=== PATIENT | male | born 1950 | race Caucasian/White ===

== ENCOUNTER 2021-04-23 03:22 | Inpatient (IN) | payer MEDICARE, MEDICAID ==
[~2021-04-23] VITALS: Ht 179.1 cm; Wt 124.2 kg
--- NOTE | 2021-04-23 03:35 | NUR ---
Pt arrived to ED with c/o numb lower extrimities that are also painful for the last two weeks. Pt is able to ambulate with steady gait, moves toes independently. Connected to BP and O2 monitors, states that he has been uncompliant with most medications except HCTZ and albuterol. Son at bedside. 86% on RA, 98% on 4L NC. at bedside for eval. TM
[2021-04-23] MEDS ORDERED: SODIUM CHLORIDE FLUSH 10ML SYR IVF ONE (04:00)
[2021-04-23] MEDS ORDERED: ALBUTEROL/IPRATROPIUM 2.5MG/0.5MG, 3 ML NPPB ONE (04:00)
[2021-04-23] MEDS ORDERED: methylPREDNISolone SOD SUCC 125 MG/2 ML IV ONE (04:00)
[2021-04-23] MEDS ORDERED: CEFAZOLIN PMX 1GM/50ML 50 ML IV ONE (04:00)
[2021-04-23] MEDS ORDERED: ALBUTEROL/IPRATROPIUM 2.5MG/0.5MG, 3 ML ONE (04:02)
[2021-04-23] MEDS ORDERED: methylPREDNISolone SOD SUCC 125 MG/2 ML ONE (04:02)
[2021-04-23] MEDS ORDERED: CEFAZOLIN PMX 1GM/50ML 50 ML ONE (04:03)
[2021-04-23 04:13] LABS: BASOPHILS % (AUTO) 1 % (0-1); EOSINOPHILS % (AUTO) 1 % (1-7); LYMPHOCYTES % (AUTO) 18 % (22-44); MEAN CORPUSCULAR HGB CONC 32.4 g/dL (33.2-36.2); MEAN PLATELET VOLUME 8.5 fL (7.4-10.4); MONOCYTES % (AUTO) 11 % (2-9); NEUTROPHILS % (AUTO) 70 % (42-75); PLATELET COUNT 91 x10^3/uL (130-400); RED BLOOD COUNT 5.85 x10^6/uL (4.38-5.82); RED CELL DISTRIBUTION WIDTH 14.5 % (9.4-14.8)
[2021-04-23 04:22] LABS: ALBUMIN 2.6 g/dL (3.4-5.0); ANION GAP 6 mmol/L (5-15); CALCIUM 7.8 mg/dL (8.5-10.1); CHLORIDE 100 mmol/L (98-107)
[2021-04-23 04:31] LABS: ALANINE AMINOTRANSFERASE 16 U/L (12-78); ALKALINE PHOSPHATASE 56 U/L (45-117); BILIRUBIN,TOTAL 1.5 mg/dL (0.2-1.0); CREATININE 1.12 mg/dL (0.7-1.3); T4 (THYROXINE) 9.5 mcg/dL (4.5-12.1); TOTAL PROTEIN 6.4 g/dL (6.4-8.2); TROPONIN I < 0.015 ng/mL (0.000-0.045)
[2021-04-23] MEDS ORDERED: FUROSEMIDE 40 MG/4 ML IV ONE (05:00)
[2021-04-23] MEDS ORDERED: LOSA1TAB25 PO (05:18)
[2021-04-23] MEDS ORDERED: ALBU0.63 NEB (05:19)
--- NOTE | 2021-04-23 05:53 | NUR ---
pt ambulatory with steady gait to restroom
--- NOTE | 2021-04-23 06:58 | NUR ---
Report to Cielo CEBALLOS
--- NOTE | 2021-04-23 07:03 | NUR ---
Pt report from [facility]. Pt care to be assumed.
--- NOTE | 2021-04-23 07:21 | NUR ---
Pt sitting on bedside, talking with son. Pt reports continuing numbness to legs x 3 weeks; denies back injury/problems. Right hand swollen; pt states it's from too much water in his blood. Denies CP, dyspnea, SOB. Cardiac monitoring in progress: NSR. O2 sat 99% 2LNC. Resp even & unlabored, speech clear, pt unwilling to deep breath for accurate LS assessment, skin WNL. Pt awaiting room assignment.
--- NOTE | 2021-04-23 07:39 | NUR ---
Dr Marquez at BS
--- NOTE | 2021-04-23 07:59 | NUR ---
Pt report to [facility] [place] for room 504.
[2021-04-23] MEDS ORDERED: ACETAMINOPHEN 325 MG TABLET PO PRN (08:00)
[2021-04-23] MEDS ORDERED: VANCOMYCIN PMX 1GM/200ML 200 ML IV ONE (08:00)
[2021-04-23] MEDS ORDERED: VANCOMYCIN PER PHARMACY MC PRN (08:00)
[2021-04-23] MEDS ORDERED: ONDANSETRON 2MG/ML, 2ML IVPush PRN (08:00)
[2021-04-23] MEDS ORDERED: ENALAPRILAT 1.25 MG/ML, 2ML IVPush PRN (08:00)
[2021-04-23] MEDS ORDERED: LABETALOL 5MG/ML, 20ML IVPush PRN (08:00)
[2021-04-23] MEDS ORDERED: GABAPENTIN 300 MG CAPSULE PO PRN (08:00)
[2021-04-23] MEDS ORDERED: POLYETHYLENE GLYCOL 17 GM PACKET PO PRN (08:00)
[2021-04-23] MEDS ORDERED: MAGNESIUM SULFATE PMX 2GM/50ML 50 ML IV ONE (08:30)
[2021-04-23 08:42] VITALS: BP 165/97
[2021-04-23] MEDS ORDERED: FUROSEMIDE 40 MG/4 ML ONE (09:20)
[2021-04-23] MEDS: ENOXAPARIN 40 MG/0.4 ML SQ SCH (09:26)
[2021-04-23] MEDS ORDERED: PHARMACOKINETIC CONSULTATION MC ONE (09:30)
[2021-04-23] MEDS ORDERED: VANCOMYCIN 2,500 MG in SODIUM CHLORIDE 0.9% 500 ML IV ONE (09:30)
[2021-04-23] MEDS ORDERED: PHARMACOKINETIC MONITORING MC PRN (09:30)
[2021-04-23] MEDS ORDERED: ALBUTEROL SULFATE 2.5 MG/3 ML NPPB PRN (09:30)
[2021-04-23 11:58] LABS: TROPONIN I < 0.015 ng/mL (0.000-0.045)
[2021-04-23] MEDS: AMPICILLIN/SULBACTAM 3 GM in SODIUM CHLORIDE 0.9% 100 ML IV SCH ×2 (12:45→19:33)
[2021-04-23 13:11] VITALS: BP 146/98
[2021-04-23 16:39] VITALS: BP 155/78
[2021-04-23] MEDS: POTASSIUM CHLORIDE 20 MEQ TAB.ER.PRT PO SCH (16:42)
[2021-04-23] MEDS: methylPREDNISolone SOD SUCC 40 MG/ML IVPush SCH ×2 (16:42→21:48)
[2021-04-23] MEDS: FUROSEMIDE 40 MG/4 ML IV SCH (16:42)
[2021-04-23 17:18] LABS: TROPONIN I < 0.015 ng/mL (0.000-0.045)
[2021-04-23 19:14] VITALS: BP 147/93
[2021-04-24] MEDS: AMPICILLIN/SULBACTAM 3 GM in SODIUM CHLORIDE 0.9% 100 ML IV SCH ×4 (01:09→20:16)
[2021-04-24 01:39] VITALS: BP 149/85
[2021-04-24] MEDS: VANCOMYCIN 2,000 MG in SODIUM CHLORIDE 0.9% 500 ML IV SCH (04:48)
[2021-04-24] MEDS: methylPREDNISolone SOD SUCC 40 MG/ML IVPush SCH ×4 (04:53→22:56)
[2021-04-24 04:56] LABS: ALANINE AMINOTRANSFERASE 21 U/L (12-78); ALBUMIN 2.7 g/dL (3.4-5.0); ANION GAP 4 mmol/L (5-15); CALCIUM 8.7 mg/dL (8.5-10.1); CHLORIDE 96 mmol/L (98-107); CHOLESTEROL, TOTAL 119 mg/dL (140-239); CREATININE 1.29 mg/dL (0.7-1.3)
[2021-04-24 05:00] LABS: ALKALINE PHOSPHATASE 62 U/L (45-117); CHOL/HDL RATIO 2.8; HDL CHOL % 35 % (26-37); HDL CHOLESTEROL (DIRECT) 42 mg/dL (40-60); LDL CHOLESTEROL,CALCULATED 62 mg/dL (54-169); LDL/HDL RATIO 1.5 (0.5-3.0); TOTAL PROTEIN 6.8 g/dL (6.4-8.2); TRIGLYCERIDES 76 mg/dL (50-200); VLDL CHOLESTEROL 15 mg/dL (0-25)
[2021-04-24 05:03] LABS: BASOPHILS % (AUTO) 0 % (0-1); EOSINOPHILS % (AUTO) 0 % (1-7); LYMPHOCYTES % (AUTO) 4 % (22-44); MEAN CORPUSCULAR HEMOGLOBIN 31.5 pg (27.5-34.5); MEAN CORPUSCULAR HGB CONC 32.7 g/dL (33.2-36.2); MEAN PLATELET VOLUME 8.9 fL (7.4-10.4); MONOCYTES % (AUTO) 3 % (2-9); NEUTROPHILS % (AUTO) 93 % (42-75); PLATELET COUNT 93 x10^3/uL (130-400); RED BLOOD COUNT 5.86 x10^6/uL (4.38-5.82); RED CELL DISTRIBUTION WIDTH 14.8 % (9.4-14.8)
[2021-04-24 06:52] VITALS: BP 142/84
[2021-04-24] MEDS: ENOXAPARIN 40 MG/0.4 ML SQ SCH (08:03)
[2021-04-24] MEDS: FUROSEMIDE 40 MG/4 ML IV SCH ×2 (08:03→17:15)
[2021-04-24] MEDS: POTASSIUM CHLORIDE 20 MEQ TAB.ER.PRT PO SCH ×2 (08:03→17:15)
[2021-04-24 13:26] VITALS: BP 157/76
[2021-04-24 20:29] VITALS: BP 137/98
[2021-04-25] VITALS (10 sets, daily range): BP systolic 112–163; BP diastolic 68–85
[2021-04-25] MEDS: AMPICILLIN/SULBACTAM 3 GM in SODIUM CHLORIDE 0.9% 100 ML IV SCH ×4 (01:35→21:21)
[2021-04-25 05:18] LABS: BASOPHILS % (AUTO) 0 % (0-1); EOSINOPHILS % (AUTO) 0 % (1-7); LYMPHOCYTES % (AUTO) 4 % (22-44); MEAN CORPUSCULAR HEMOGLOBIN 30.9 pg (27.5-34.5); MEAN CORPUSCULAR HGB CONC 31.4 g/dL (33.2-36.2); MONOCYTES % (AUTO) 3 % (2-9); NEUTROPHILS % (AUTO) 93 % (42-75); PLATELET COUNT 92 x10^3/uL (130-400); RED BLOOD COUNT 5.67 x10^6/uL (4.38-5.82); RED CELL DISTRIBUTION WIDTH 14.8 % (9.4-14.8)
[2021-04-25 05:32] LABS: ANION GAP 4 mmol/L (5-15); CALCIUM 8.9 mg/dL (8.5-10.1); CHLORIDE 93 mmol/L (98-107)
[2021-04-25 05:33] LABS: CREATININE 1.12 mg/dL (0.7-1.3)
[2021-04-25] MEDS: VANCOMYCIN 2,000 MG in SODIUM CHLORIDE 0.9% 500 ML IV SCH (05:41)
[2021-04-25] MEDS: methylPREDNISolone SOD SUCC 40 MG/ML IVPush SCH ×3 (05:47→21:21)
[2021-04-25] MEDS: ENOXAPARIN 40 MG/0.4 ML SQ SCH ×2 (09:19→21:21)
[2021-04-25] MEDS: FUROSEMIDE 40 MG/4 ML IV SCH ×2 (09:19→17:13)
[2021-04-25] MEDS ORDERED: LIDOCAINE 1%, 10ML ONE (09:36)
[2021-04-25 09:37] LABS: BILIRUBIN, DIRECT 0.2 mg/dL (0.1-0.2); BILIRUBIN,INDIRECT 0.6 mg/dL (0.0-2.0); BILIRUBIN,TOTAL 0.8 mg/dL (0.2-1.0); TOTAL PROTEIN 6.7 g/dL (6.4-8.2)
[2021-04-25] MEDS: CARVEDILOL 3.125 MG TABLET PO SCH (17:13)
--- NOTE | 2021-04-25 22:32 | NUR ---
MARY SHAH - Fall Risk Medication(s) present (CARVEDILOL, FUROSEMIDE, GABAPENTIN, LABETALOL) and receiving anticoagulants (ENOXAPARIN). Signed: 04/25/21 at 2233 by Carley CHATMAN
[2021-04-26] VITALS (7 sets, daily range): BP systolic 107–137; BP diastolic 59–88
[2021-04-26] MEDS: AMPICILLIN/SULBACTAM 3 GM in SODIUM CHLORIDE 0.9% 100 ML IV SCH ×4 (02:54→20:48)
[2021-04-26] MEDS: FUROSEMIDE 40 MG/4 ML IV SCH ×2 (06:42→17:34)
[2021-04-26] MEDS: CARVEDILOL 3.125 MG TABLET PO SCH ×2 (06:42→17:41)
[2021-04-26 08:35] LABS: ANION GAP 3 mmol/L (5-15); CALCIUM 8.8 mg/dL (8.5-10.1); CHLORIDE 89 mmol/L (98-107); CREATININE 1.03 mg/dL (0.7-1.3)
[2021-04-26 09:19] LABS: BASOPHILS % (AUTO) 0 % (0-1); EOSINOPHILS % (AUTO) 0 % (1-7); LYMPHOCYTES % (AUTO) 6 % (22-44); MEAN CORPUSCULAR HEMOGLOBIN 31.1 pg (27.5-34.5); MEAN CORPUSCULAR HGB CONC 32.1 g/dL (33.2-36.2); MEAN PLATELET VOLUME 9.7 fL (7.4-10.4); MONOCYTES % (AUTO) 6 % (2-9); NEUTROPHILS % (AUTO) 88 % (42-75); PLATELET COUNT 80 x10^3/uL (130-400); RED BLOOD COUNT 5.55 x10^6/uL (4.38-5.82); RED CELL DISTRIBUTION WIDTH 14.8 % (9.4-14.8)
[2021-04-26] MEDS: LISINOPRIL 20 MG TABLET PO SCH (09:23)
[2021-04-26] MEDS: methylPREDNISolone SOD SUCC 40 MG/ML IVPush SCH ×2 (09:23→20:47)
[2021-04-26] MEDS: ENOXAPARIN 40 MG/0.4 ML SQ SCH ×2 (09:24→20:47)
[2021-04-27 01:32] VITALS: BP 145/93
[2021-04-27] MEDS: AMPICILLIN/SULBACTAM 3 GM in SODIUM CHLORIDE 0.9% 100 ML IV SCH ×4 (03:05→21:46)
[2021-04-27] MEDS: CARVEDILOL 3.125 MG TABLET PO SCH ×2 (05:34→18:16)
[2021-04-27 07:12] VITALS: BP 145/82
[2021-04-27] MEDS: FUROSEMIDE 40 MG/4 ML IV SCH ×2 (07:40→18:16)
[2021-04-27] MEDS: ENOXAPARIN 40 MG/0.4 ML SQ SCH (07:41)
[2021-04-27] MEDS: LISINOPRIL 20 MG TABLET PO SCH (07:41)
[2021-04-27] MEDS: methylPREDNISolone SOD SUCC 40 MG/ML IVPush SCH ×2 (07:41→21:46)
[2021-04-27 08:12] LABS: ANION GAP 3 mmol/L (5-15); CALCIUM 8.8 mg/dL (8.5-10.1); CHLORIDE 91 mmol/L (98-107); CREATININE 0.97 mg/dL (0.7-1.3)
[2021-04-27 12:35] VITALS: BP 146/76
[2021-04-27] MEDS ORDERED: ALBUTEROL/IPRATROPIUM 2.5MG/0.5MG, 3 ML NPPB SCH (15:00)
[2021-04-27] MEDS ORDERED: ALBUTEROL SULFATE 2.5 MG/3 ML NPPB SCH (15:30)
[2021-04-27] MEDS: BUDESONIDE 0.5 MG/2 ML INHA NPPB SCH (20:30)
[2021-04-27 20:35] VITALS: BP 128/76
[2021-04-28 01:27] VITALS: BP_SYST 144; BP_SYST 160; BP_DIAS 79
[2021-04-28] MEDS: AMPICILLIN/SULBACTAM 3 GM in SODIUM CHLORIDE 0.9% 100 ML IV SCH ×4 (03:22→21:11)
[2021-04-28 05:13] LABS: BASOPHILS % (AUTO) 0 % (0-1); EOSINOPHILS % (AUTO) 0 % (1-7); LYMPHOCYTES % (AUTO) 7 % (22-44); MEAN CORPUSCULAR HEMOGLOBIN 30.9 pg (27.5-34.5); MEAN CORPUSCULAR HGB CONC 32.4 g/dL (33.2-36.2); MEAN PLATELET VOLUME 8.4 fL (7.4-10.4); MONOCYTES % (AUTO) 5 % (2-9); NEUTROPHILS % (AUTO) 88 % (42-75); PLATELET COUNT 70 x10^3/uL (130-400); RED BLOOD COUNT 5.53 x10^6/uL (4.38-5.82); RED CELL DISTRIBUTION WIDTH 14.2 % (9.4-14.8)
[2021-04-28 05:22] LABS: ANION GAP 4 mmol/L (5-15); CALCIUM 8.5 mg/dL (8.5-10.1); CHLORIDE 86 mmol/L (98-107)
[2021-04-28 05:24] LABS: CREATININE 0.77 mg/dL (0.7-1.3)
[2021-04-28] MEDS: CARVEDILOL 3.125 MG TABLET PO SCH ×2 (05:58→18:20)
[2021-04-28] MEDS: FUROSEMIDE 40 MG/4 ML IV SCH ×2 (05:58→18:20)
[2021-04-28 08:03] VITALS: BP 116/73
[2021-04-28] MEDS: LISINOPRIL 20 MG TABLET PO SCH (08:03)
[2021-04-28] MEDS: ENOXAPARIN 40 MG/0.4 ML SQ SCH (08:03)
[2021-04-28] MEDS: methylPREDNISolone SOD SUCC 40 MG/ML IVPush SCH ×2 (08:03→21:11)
[2021-04-28] MEDS ORDERED: ALBUTEROL SULFATE 2.5 MG/3 ML NPPB SCH (09:00)
[2021-04-28 09:32] LABS: FIO2 100 %
[2021-04-28] MEDS: BUDESONIDE 0.5 MG/2 ML INHA NPPB SCH ×2 (10:01→19:56)
[2021-04-28] MEDS ORDERED: ALBUTEROL/IPRATROPIUM 2.5MG/0.5MG, 3 ML NEB SCH (11:00)
[2021-04-28 13:20] VITALS: BP 106/65
[2021-04-28] MEDS: ALBUTEROL SULFATE 2.5 MG/3 ML NPPB SCH ×2 (16:00→19:56)
[2021-04-28 20:51] VITALS: BP 109/62
[2021-04-29 02:40] VITALS: BP 125/78
[2021-04-29 04:52] LABS: ALBUMIN 2.6 g/dL (3.4-5.0); ANION GAP 4 mmol/L (5-15); CALCIUM 8.8 mg/dL (8.5-10.1); CHLORIDE 86 mmol/L (98-107)
[2021-04-29 04:56] LABS: ALANINE AMINOTRANSFERASE 41 U/L (12-78); ALKALINE PHOSPHATASE 42 U/L (45-117); BILIRUBIN,TOTAL 1.4 mg/dL (0.2-1.0); CREATININE 0.93 mg/dL (0.7-1.3); TOTAL PROTEIN 5.8 g/dL (6.4-8.2)
[2021-04-29] MEDS: AMPICILLIN/SULBACTAM 3 GM in SODIUM CHLORIDE 0.9% 100 ML IV SCH ×2 (05:28→13:09)
[2021-04-29 06:27] VITALS: BP 130/77
[2021-04-29] MEDS: CARVEDILOL 3.125 MG TABLET PO SCH (06:29)
[2021-04-29] MEDS: BUDESONIDE 0.5 MG/2 ML INHA NPPB SCH (09:00)
[2021-04-29] MEDS: ALBUTEROL SULFATE 2.5 MG/3 ML NPPB SCH (09:00)
[2021-04-29] MEDS: methylPREDNISolone SOD SUCC 40 MG/ML IVPush SCH (09:05)
[2021-04-29] MEDS: FUROSEMIDE 40 MG/4 ML IV SCH ×2 (09:05→17:00)
[2021-04-29] MEDS: ENOXAPARIN 40 MG/0.4 ML SQ SCH (09:05)
[2021-04-29] MEDS: LISINOPRIL 20 MG TABLET PO SCH (09:05)
[2021-04-29 12:20] VITALS: BP 120/76
[2021-04-29] MEDS ORDERED: ACET250T2 PO (13:25)
[2021-04-29] MEDS ORDERED: CARV3.1212 PO (13:25)
[2021-04-29] MEDS ORDERED: LOSA50TA2 PO (13:25)
[2021-04-29] MEDS ORDERED: POLY17PO5 PO (13:25)
[2021-04-29] MEDS ORDERED: IPRA3AMP30 INH (13:25)
[2021-04-29] MEDS ORDERED: PRED5TAB PO (13:25)
[2021-04-29] MEDS ORDERED: FURO40TA6 PO (13:25)
[2021-04-29] MEDS ORDERED: FLUT1DIS5 IH (13:25)
== END 2021-04-29 17:06 | DRG 602 ==
LOC: ED 06:20 → 5SO 07:24
PROVIDERS: ADMIT Internal Medicine; ATTEND Internal Medicine
PROC: 0W993ZZ Drainage of Right Pleural Cavity, Percutaneous Approach (ICD-10-PCS; principal; 2021-04-25)
DX: L03.115 Cellulitis of right lower limb (principal); J96.01 Acute respiratory failure with hypoxia; I50.23 Acute on chronic systolic (congestive) heart failure; J44.1 Chronic obstructive pulmonary disease with (acute) exacerbation; J98.11 Atelectasis; J91.8 Pleural effusion in other conditions classified elsewhere; I11.0 Hypertensive heart disease with heart failure; L03.116 Cellulitis of left lower limb; D69.6 Thrombocytopenia, unspecified; D75.1 Secondary polycythemia; E66.01 Morbid (severe) obesity due to excess calories; F17.210 Nicotine dependence, cigarettes, uncomplicated; I27.20 Pulmonary hypertension, unspecified; I48.91 Unspecified atrial fibrillation; I87.8 Other specified disorders of veins; Z91.19 Patient's noncompliance with other medical treatment and regimen; Z71.6 Tobacco abuse counseling; Z68.38 Body mass index [BMI] 38.0-38.9, adult
CPT/HCPCS: 32555; 36415; 36600; 70450; 71045; 80048; 80053; 80061; 80076; 82803; 83615; 83735; 83880; 84100; 84145; 84157; 84436; 84443; 84484; 85025; 87040; 87070; 87205; 89051; 94640; 96365; 96366; 96375; C8929; G0378; J0295; J0690; J1650; J1940; J3370; J7613; J7626; Q9957; J2920; J2930; J3475; J7040